=== PATIENT | male | born 1945 | race Two or more races ===

== ENCOUNTER 2016-12-05 23:30 | Inpatient (IN) | payer MEDICARE, BC ==
[~2016-12-05] VITALS: Ht 154.9 cm; Wt 57.6 kg
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
[2016-12-06] MEDS ORDERED: MAG HYDROX/AL HYDROX/SIMETH 30 ML UDC PO PRN
[2016-12-06] MEDS ORDERED: ACETAMINOPHEN 325 MG TABLET PO PRN
[2016-12-06] MEDS ORDERED: MAGNESIUM HYDROXIDE 30 ML UDC PO PRN
[2016-12-06] MEDS ORDERED: LORAZEPAM 0.5 MG TABLET PO PRN
[2016-12-06] MEDS ORDERED: TEMAZEPAM 7.5 MG CAPSULE ONE (00:55)
[2016-12-06] MEDS: TEMAZEPAM 7.5 MG CAPSULE PO PRN ×2 (01:03→21:16)
--- NOTE | 2016-12-06 01:03 | NUR ---
GPS/RN NOTE: PATIENT STILL AWAKE, C/O INSOMNIA, RESTORIL 7.5 MG CAP PO GIVEN.
[2016-12-06] MEDS ORDERED: MEMA10TA PO (06:07)
[2016-12-06] MEDS ORDERED: CLON0.5T PO (06:07)
[2016-12-06] MEDS ORDERED: GABA-532 PO (06:07)
[2016-12-06 07:59] LABS: BASOPHILS % (AUTO) 0.2 % (0.0-2.0); EOSINOPHILS % (AUTO) 0.3 % (0.0-6.0); HEMATOCRIT 48 % (39-51); HEMOGLOBIN 16.1 g/dL (13.5-17.5); LYMPHOCYTES # (AUTO) 1.1 /CMM (0.8-4.8); LYMPHOCYTES % (AUTO) 13.2 % (20.0-44.0); MEAN CORPUSCULAR HEMOGLOBIN 33 PG (26.0-33.0); MEAN CORPUSCULAR HGB CONC 34 g/dl (31.0-36.0); MEAN CORPUSCULAR VOLUME 98 fL (80-96); MONOCYTES # (AUTO) 0.7 /CMM (0.1-1.30); MONOCYTES % (AUTO) 8.3 % (2.0-12.0); NEUTROPHILS # (AUTO) 6.7 /CMM (1.8-8.9); PLATELET COUNT (AUTO) 241 /CMM (150-450); RDW COEFFICIENT OF VARIATION 12.6 (11.5-15.0); RED BLOOD CELL COUNT(AUTO) 4.85 MIL/uL (4.5-6.0); WHITE BLOOD COUNT (AUTO) 8.6 K/uL (4.3-11.0)
[2016-12-06 08:00] VITALS: BP 162/91
[2016-12-06 08:11] LABS: CHOLESTEROL 229 mg/dL (<200); HDL CHOLESTEROL 81 mg/dL (40-60); LDL 145 mg/dL (0-99); TRIGLYCERIDES 44 mg/dL (30-150)
[2016-12-06 08:14] LABS: ALBUMIN 3.6 g/dL (3.4-5.0); BILIRUBIN,TOTAL 0.8 mg/dL (0.2-1.0); CREATININE 0.7 mg/dL (0.6-1.3); TOTAL PROTEIN, SERUM 7.5 g/dL (6.4-8.2)
--- NOTE | 2016-12-06 08:17 | NUR ---
GPS/RN NOTE: CALLED [employer] RE: [employer] REPORT, LEFT A MESSAGE. ENDORSED TO DAY NURSE FOR FOLLOW-UP.
--- NOTE | 2016-12-06 08:18 | NUR ---
GPS/RN NOTE: CALLED , NOTIFIED ABOUT ADMISSION. LEFT A MESSAGE
--- NOTE | 2016-12-06 10:25 | NUR ---
BART GAUTHIER CONTACTED [phone] TO TALK TO [employer] JONES REGARDING THE TAR[employer] AND SHE SPOKE TO AVE AND AVE CALLED [employer] JONES AND SAID LOIDA DONE AND THEY FAXED THE TARASOFF WORKSHEET IN [facility].
--- NOTE | 2016-12-06 14:30 | NUR ---
jian garg, in to see pt.
--- NOTE | 2016-12-06 15:00 | NUR ---
asking lots of questions prior to signing med consent for psychiatrist.
[2016-12-06 16:00] VITALS: BP 158/95
--- NOTE | 2016-12-06 19:23 | NUR ---
GPS/RN NOTE: PATIENT IS UP AMBULATING AT THE HALLWAY, NO APPARENT DISTRESS NOTED.
[2016-12-06 20:00] VITALS: BP 158/90
[2016-12-06] MEDS: risperiDONE 1 MG TABLET PO SCH (21:16)
--- NOTE | 2016-12-07 01:02 | NUR ---
Pt has been quite guarded & paranoid. He needed lots of promptings to take his Risperdal last night.
[2016-12-07 08:01] VITALS: BP 165/93
[2016-12-07] MEDS: risperiDONE 1 MG TABLET PO SCH ×2 (08:44→20:22)
[2016-12-07] MEDS: ESCITALOPRAM OXALATE (10 MG) 10 MG TABLET PO SCH (08:45)
[2016-12-07 16:00] VITALS: BP 158/80
[2016-12-07 20:14] VITALS: BP 160/90
[2016-12-08 08:21] VITALS: BP 160/90
[2016-12-08] MEDS: ESCITALOPRAM OXALATE (10 MG) 10 MG TABLET PO SCH (09:31)
[2016-12-08] MEDS: risperiDONE 1 MG TABLET PO SCH ×2 (09:31→21:36)
[2016-12-08 16:07] VITALS: BP 124/78
--- NOTE | 2016-12-08 16:22 | NUR ---
Initial Discharge Plan: Per patient, he resides with his in a house in [place]; [address] [place] [id number] ([facility]) / . He wishes to return home upon discharge. SW financial analyst intern left a message with on wifes phone . SW financial analyst intern encouraged pts to reach out to his assigned SW should she have any questions. SW to communicate with Patients Nimisha Jackson regarding most appropriate discharge plan. SW to help form a safe and proper discharge.
--- NOTE | 2016-12-08 16:23 | NUR ---
SW attempted to get in touch with pt's , Nimisha . SW left a voicemail with detailed contact information.
--- NOTE | 2016-12-08 17:30 | NUR ---
[id number]: NOTIFIED [facility] MRI RESULTS SEND BY FAMILY. PENDING RETURN PHONE CALL.
[2016-12-08 20:00] VITALS: BP 150/66
[2016-12-08 20:01] VITALS: BP 150/66
[2016-12-09 08:00] VITALS: BP 162/90
[2016-12-09] MEDS: ESCITALOPRAM OXALATE (10 MG) 10 MG TABLET PO SCH (09:09)
[2016-12-09] MEDS: risperiDONE 1 MG TABLET PO SCH ×2 (09:09→20:20)
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
[2016-12-09 15:43] VITALS: BP 133/72
--- NOTE | 2016-12-09 18:30 | NUR ---
[id number]; NOTIFIED GAMALIEL SANZ ABOUT MRI BRAIN W/O AND W/CONTRAST DONE ON MAR 19, 2016 FAXED BY FAMILY. NO NEW ORDERS GIVEN AT THIS TIME.
[2016-12-09 20:00] VITALS: BP 159/76
[2016-12-10 08:39] VITALS: BP 159/81
[2016-12-10] MEDS: ESCITALOPRAM OXALATE (10 MG) 10 MG TABLET PO SCH (09:19)
[2016-12-10] MEDS: risperiDONE 1 MG TABLET PO SCH ×2 (09:19→21:23)
--- NOTE | 2016-12-10 14:26 | NUR ---
SW spoke with patient and informed him that a placement at a facility would be a good idea as he is unable to return home. Patient was very open with that and was in agreement with the discharge plan.
--- NOTE | 2016-12-10 14:30 | NUR ---
RONNELL faxed over an inquiry to Zak from [facility] [id number] [place] [address], at fax number [phone]. RONNELL will follow up.
[2016-12-10 16:10] VITALS: BP 130/77
--- NOTE | 2016-12-10 16:41 | NUR ---
RONNELL spoke to pt's Nimisha [phone] who stated that she is still concerned for herself and for her . Nimisha stated that she would like placement somewhere in the [place] area or in [place]. Nimisha stated that she can arrange transportation if need be. RONNELL stated that she will do her best but that she will also look into placement locally. Nimisha agreed. RONNELL will follow up.
--- NOTE | 2016-12-10 19:30 | NUR ---
GPS RN NOTE, RECEIVED PATIENT AWAKE AND IN BED, NO S/S OR COMPLAINTS OF PAIN AT THIS TIME. PATIENT IS DISPLAYING NO S/S OF APPARENT DISTRESS AT THIS TIME. PATIENT BREATHING IS UNLABORED WITH EQUAL RISE AND FALL OF THE CHEST. PATIENT IS ALERT AND ORIENTED X 3 ON ROOM AIR WITH A SPO2 OF 97%. PATIENT IS ANXIOUS AT TIMES , COMPLIANT WITH MEDICATION, COOPERATIVE, HAS EPISODES OF CONFUSION AT TIMES, AND NEEDS REORIENTATION. PATIENT DENIES SUICIDE IDEATIONS AND HOMICIDAL IDEATIONS AT THIS TIME. PATIENT EDUCATED ON THE USE OF THE CALL CORONEL. PATIENT BED SIDE RAILS UP X2 FOR SAFETY, BED IS LOCKED AND LOW, AND I WILL CONTINUE TO MONITOR AND MAINTAIN SAFETY Q15MIN WITH THE HELP OF STAFF.
[2016-12-10 19:37] VITALS: BP 163/80
[2016-12-10 19:52] VITALS: BP 155/77
[2016-12-11 08:00] VITALS: BP 154/88
[2016-12-11] MEDS: ESCITALOPRAM OXALATE (10 MG) 10 MG TABLET PO SCH (08:21)
[2016-12-11] MEDS: risperiDONE 1 MG TABLET PO SCH ×2 (08:21→21:53)
--- NOTE | 2016-12-11 13:49 | NUR ---
RONNELL followed up with Zak from [facility] for placement, has no recieved answer yet. RONNELL faxed over inquiry to May from [facility], / fax number [phone] RONNELL faxed over inquiry to [facility] in [place], [phone] / fax number [phone]
--- NOTE | 2016-12-11 14:09 | NUR ---
RONNELL faxed over inquiries to : [facility] in [place], / fax number [phone] Nancy [facility]on in [place], / fax number [phone] [facility] in [place], / fax number [phone] [place] in [place], / fax number [phone] RONNELL will follow up tomorrow morning
--- NOTE | 2016-12-11 15:46 | NUR ---
RONNELL heard back from Brionna from [facility] in [place], [phone] / fax number [phone]. Brionna asked a few questions regarding patient [why is the location far from hospital, is patient long/term stay, is he still suicidal]. RONNELL answered her questions/concerns. Brionna asked when discharge was taking place and RONNELL stated Thursday or Thursday. Brionna stated that she will be in touch. SW to follow up.
[2016-12-11 16:00] VITALS: BP 149/75
[2016-12-11 20:00] VITALS: BP 143/68
[2016-12-11] MEDS: TEMAZEPAM 7.5 MG CAPSULE PO PRN (22:43)
--- NOTE | 2016-12-11 22:43 | NUR ---
GPS/RN NOTE: C/O INSOMNIA, TEMAZEPAM 7.5 MG CAP PO GIVEN.
--- NOTE | 2016-12-12 07:20 | NUR ---
RN NOTE PT IS IN BED, SLEEPING COMFORTABLY. PT ON RA, RESPIRATIONS ARE EVEN AND UNLABORED. SAFETY MEASURES ARE IN PLACE. WILL CONTINUE TO MONITOR.
[2016-12-12 08:00] VITALS: BP 157/86
[2016-12-12] MEDS: risperiDONE 1 MG TABLET PO SCH ×2 (09:21→21:42)
[2016-12-12] MEDS: AMLODIPINE BESYLATE 5 MG TABLET PO SCH (09:21)
[2016-12-12] MEDS: ESCITALOPRAM OXALATE (10 MG) 10 MG TABLET PO SCH (09:21)
--- NOTE | 2016-12-12 11:58 | NUR ---
RONNELL spoke with Brionna from [facility] in [place], [phone] / fax number [phone] who stated that they do not have a bed for patient.
--- NOTE | 2016-12-12 11:59 | NUR ---
SW heard back from May at [facility] in [place], / fax number [phone] who stated they were unable to find a strong enough skilled need.
--- NOTE | 2016-12-12 12:07 | NUR ---
RONNELL Followed Up: [facility] in [place], / fax number [phone] per admissions, [facility] denied patient [facility] in [place], / fax number [phone] per hotel receptionist, admissions specialist is not in until Thursday [facility] in [place], / fax number [phone] per Lizette, admissions specialist Vijaya is at a meeting, RONNELL left message with Lizette with call back info
--- NOTE | 2016-12-12 13:32 | NUR ---
Zak from [facility] came to assess patient and stated that he was able to be placed at [facility]. SW spoke with patient and patient stated that he was open to that idea. SW explained that she has been looking into places in the [place] area as well as [place], but that she has not had any [place]. SW stated that she understand it will be idea for client to be closer to his family, which is what his wants as well. However, RONNELL stated that if there is no [place] today, then [facility] becomes the best option. Patient stated that he agreed with that plan and that it was okay with him to be discharged to [facility]. Addendum: 12/16/16 at 1206 by FILIPPO REYNAGA Please note patient is placed at [facility], not [facility].
[2016-12-12 16:00] VITALS: BP 130/61
[2016-12-12 16:11] VITALS: BP 130/61
--- NOTE | 2016-12-12 18:10 | NUR ---
RN NOTES PT IS IN BED, RESTING COMFORTABLY. PT SHOWS NO SIGNS OF DISTRESS. PT COMPLIANT WITH MEDICATIONS. WILL ENDORSE TO SUPERVISOR FINISHING DEPARTMENT RN FOR CONTINUITY OF CARE.
--- NOTE | 2016-12-12 19:53 | NUR ---
GPS/RN NOTE: QUIETLY RESTING IN BED, DENIES ANY DISCOMFORT AT THIS TIME. AWAKE, ALERT, ORIENTED 3. STABLE CONDITION.
[2016-12-12 20:00] VITALS: BP 137/62
[2016-12-12] MEDS: TEMAZEPAM 7.5 MG CAPSULE PO PRN (21:43)
--- NOTE | 2016-12-12 21:43 | NUR ---
GPS/RN NOTE: APPROACHED THE NURSE'S STATION, C/O INSOMNIA, TEMAZEPAM 7.5 MG CAP PO GIVEN.
[2016-12-13 08:00] VITALS: BP 150/78
[2016-12-13] MEDS: ESCITALOPRAM OXALATE (10 MG) 10 MG TABLET PO SCH (08:35)
[2016-12-13] MEDS: risperiDONE 1 MG TABLET PO SCH ×2 (08:35→21:52)
[2016-12-13] MEDS: AMLODIPINE BESYLATE 5 MG TABLET PO SCH (08:36)
[2016-12-13 16:00] VITALS: BP 126/75
[2016-12-13 20:00] VITALS: BP 145/72
[2016-12-13] MEDS: TEMAZEPAM 7.5 MG CAPSULE PO PRN (21:52)
[2016-12-14 08:02] VITALS: BP 158/80
[2016-12-14] MEDS: ESCITALOPRAM OXALATE (10 MG) 10 MG TABLET PO SCH (08:26)
[2016-12-14] MEDS: risperiDONE 1 MG TABLET PO SCH ×2 (08:26→21:29)
[2016-12-14] MEDS: AMLODIPINE BESYLATE 5 MG TABLET PO SCH (08:27)
[2016-12-14 15:38] VITALS: BP 140/77
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
[2016-12-14 19:55] VITALS: BP 149/75
[2016-12-14 20:07] VITALS: BP 149/75
[2016-12-14] MEDS: TEMAZEPAM 7.5 MG CAPSULE PO PRN (22:30)
[2016-12-15 08:17] VITALS: BP 146/73
[2016-12-15] MEDS: AMLODIPINE BESYLATE 5 MG TABLET PO SCH (08:40)
[2016-12-15] MEDS: risperiDONE 1 MG TABLET PO SCH ×2 (08:40→21:47)
[2016-12-15] MEDS: ESCITALOPRAM OXALATE (10 MG) 10 MG TABLET PO SCH (08:41)
[2016-12-15 15:37] VITALS: BP 124/64
[2016-12-15 19:42] VITALS: BP 129/61
--- NOTE | 2016-12-15 20:31 | NUR ---
Resting quietly in bed, no distress noted or voiced.Able to move about on his own.Will continue to monitor pts safety.
[2016-12-15] MEDS: TEMAZEPAM 7.5 MG CAPSULE PO PRN (21:48)
--- NOTE | 2016-12-15 22:30 | NUR ---
A/A O times 4 no distress noted,sleeper given per request.Pleasant and coopertive.
--- NOTE | 2016-12-16 01:20 | NUR ---
Will continue to monitor for pt safety
--- NOTE | 2016-12-16 06:15 | NUR ---
Slept most of night after spleeper given. Was up for a while,walking.Kept injury free.
[2016-12-16 08:00] VITALS: BP 126/72
[2016-12-16] MEDS: ESCITALOPRAM OXALATE (10 MG) 10 MG TABLET PO SCH (08:35)
[2016-12-16] MEDS: risperiDONE 1 MG TABLET PO SCH (08:35)
[2016-12-16] MEDS: AMLODIPINE BESYLATE 5 MG TABLET PO SCH (08:36)
--- NOTE | 2016-12-16 12:06 | NUR ---
Discharge Note Patient will be discharged to [facility] [address] [place] [address], via ambulance transportation arranged by geriatric social work professor for 4:30pm. Patient's , Nimisha [phone] is aware of discharge and will meet her at the facility. Patient will follow up with his risk assessment analyst, Dr. Garner [id number] [address], [place] [address] [phone] on Thursday12/22/16 at 1pm. Patient will also be followed by his psychiatrist, Dr. Thorne [address] [place] [address] [phone] who will visit patient at the facility on Tuesday 12/19 at 9:30am. Patient is not a smoker and does not use drugs/alcohol.
[2016-12-16 16:07] VITALS: BP 120/152
--- NOTE | 2016-12-16 18:15 | NUR ---
GPS/RN PATIENT CLEARED FOR DISCHARGE BY DR GRANADOS AND DR OLSON TO [facility]. ALL/D/C PAPER WORK COMPLETED, MEDICATIONS, PACKET AND AFTER CARE PLAN EXPLAINED TO PATIENT, VERBALIZED UNDERSTANDING.BELONGINGS RETURNED AND SIGNED FOR BY PATIENT, REPORT CALLED TO FACILITY, SPOKE WITH MEGAN, D/C PHOTOS TAKEN AND PLACED IN CHART, PATIENT DENIES SI/HI/AH UPON DISCHARGE, PSYCHIATRIC TREATMENT PLANS MET, LEFT UNIT CALM, COOPERATIVE, NO AGITATION, STABLE CONDITION, NO DISTRESS WITH TRANSPORT AT SIDE.
== END 2016-12-16 18:56 | DRG 885 ==
LOC: GPS 23:30
PROVIDERS: ADMIT Psychiatry & Neurology Psychiatry; ATTEND Nurse Practitioner Acute Care
DX: F32.3 Major depressive disorder, single episode, severe with psychotic features (principal); F03.90 Unspecified dementia, unspecified severity, without behavioral disturbance, psychotic disturbance, mood disturbance, and anxiety; F29 Unspecified psychosis not due to a substance or known physiological condition; I10 Essential (primary) hypertension
CPT/HCPCS: 36415; 80053-TC; 80061-TC; 85025-TC; 87081-TC; A6402